=== PATIENT | male | born 1950 | race Caucasian/White ===

== ENCOUNTER 2017-02-26 07:01 | Day surgery (SDC) | payer MEDICARE, BC ==
[~2017-02-26 07:01] MED LIST: Buffered Lidocaine 1% SYRIN* 3 ML/SYR SYRINGE INTRADERM ONE
[2017-02-26] MEDS ORDERED: ceFAZolin 2 GM PREMIX(*) 2 GM/50 ML BAG IVPB ONE (07:05)
[2017-02-26] MEDS ORDERED: fentaNYL* 50 MCG/ML 2 ML VIAL (100 MCG VIAL) ONE (11:06)
[2017-02-26] MEDS ORDERED: Midazolam* 1 MG/ML 5 ML VIAL (5 MG) ONE (11:06)
[2017-02-26] MEDS ORDERED: Lidocaine 1% MPF wEPI 200,000* 30 ML SDV ONE (11:40)
--- NOTE | 2017-02-26 11:52 | RAD ---
HISTORY: Melanoma. Lymphoscintigraphy of the neck for the purposes of sentinel node identification. COMPARISONS: None TECHNIQUE: The procedure was explained to the patient, including, but not limited to, the risks of allergic reaction, who indicated that he understood. Written and verbal informed consent was obtained, with an opportunity to ask and answer questions. The right neck was marked. A timeout was performed. The patient was prepped and draped in the usual sterile fashion. Technetium 99m sulfur colloid was administered in a subdermal fashion in 4 divided aliquots surrounding the site of skin biopsy of the right neck. Cine and planar imaging was performed. DOSE: Technetium 99m sulfur colloid, 0.45 millicuries, injected at 9:25 AM on February 26, 2017 FINDINGS: At 2 hours following injection, there is still no discernible uptake in cervical lymph nodes. OTHER: None IMPRESSION: 2 HOURS FOLLOWING INJECTION, THERE IS NO DISCERNIBLE UPTAKE IN CERVICAL LYMPH NODES. FINDINGS WERE DISCUSSED WITH DR. ROSEN
[2017-02-26] MEDS ORDERED: EPHEDrine (Pressors)* 50 MG/ML VIAL ONE (12:47)
[2017-02-26] MEDS ORDERED: Propofol* 10 MG/ML 20 ML BTL IV PUSH ONE (12:48)
[2017-02-26] MEDS ORDERED: Ondansetron INJ* 2 MG/ML VIAL IV PRN (12:53)
[2017-02-26 14:30] VITALS: BP 112/57
== END 2017-02-26 14:48 | disposition home or self-care (01) ==
LOC: SDS 07:01
PROVIDERS: ATTEND Plastic Surgery
DX: C43.4 Malignant melanoma of scalp and neck (principal); E11.9 Type 2 diabetes mellitus without complications; Z85.828 Personal history of other malignant neoplasm of skin
CPT/HCPCS: 78195; 88305; 88341; 88342; A9541; J0690; J2001; J2250; J2704; J3010